=== PATIENT | female | born 1955 | race Two or more races ===

== ENCOUNTER 2022-05-24 11:22 | Outpatient (CLI) | payer OTHER | END 2022-05-24 11:23 | disposition home or self-care (01) | LOC: LAB 11:22 | PROVIDERS: ATTEND Internal Medicine Pulmonary Disease | DX: R05.9 Cough, unspecified (principal); R06.02 Shortness of breath; R50.9 Fever, unspecified; Z20.822 Contact with and (suspected) exposure to COVID-19 ==